=== PATIENT | female | born 1955 | race Caucasian/White ===

== ENCOUNTER 2017-07-14 20:23 | Emergency (ER) | payer BC ==
[~2017-07-14 20:23] MED LIST: ISOVUE-370 76%-LOCM 1 ML ONE
[2017-07-14 21:27] LABS: #Basophils 0.1 thou/uL (0.0-0.2); #Eosinphils 0.4 thou/uL (0.0-0.7); #Monocytes 0.9 thou/uL (0.11-0.59); #Neutrophils 7.6 thou/uL (1.40-6.50); %Basophils 0.6 % (0.0-1.0); %Eosinophils 3.8 % (0.0-10.0); %Lymphocytes 18.5 % (21.0-51.0); %Monocytes 7.9 % (0.0-10.0); Hematocrit 40.5 % (36.0-47.0); Mean Platelet Volume 6.6 fL (7.4-10.4); Red Blood Cell (RBC) Count 4.33 mill/uL (4.20-5.40); White Blood Cell (WBC) Count 10.9 thou/uL (4.8-10.8)
[2017-07-14 21:38] LABS: Lactic Acid - Sepsis 1.6 mmol/L (0.5-2.2)
[2017-07-14 21:42] LABS: ALT (SGPT) 14 U/L (8-55); AST (SGOT) 17 U/L (5-34); Alkaline Phosphatase 67 U/L (40-150); Anion Gap 13 mmol/L (10-20); BUN (Urea Nitrogen) 9 mg/dL (9.8-20.1); Bilirubin, Total 0.3 mg/dL (0.2-1.2); Calc. Creatinine Clearance 0 mL/min (70-130); Carbon Dioxide 26 mmol/L (23-31); Chloride 102 mmol/L (98-107); Estimated GFR-MDRD 71; Protein, Total 6.5 g/dL (6.0-8.3)
--- NOTE | 2017-07-14 23:39 | CT ---
CTA OF THE THORAX UTILIZING IV CONTRAST AND PE PROTOCOL AND 3D REFORMATTED IMAGING 07/14/17 INDICATION: 62-year-old female with cough and shortness of breath. Concern for PE. COMPARISON: Prior exam dated 07/24/13. FINDINGS: No central or segmental pulmonary embolus is evident. There is some subsegmental atelectasis within both lower lobes. No air space consolidation, pleural effusion or pneumothorax is evident. There are mild mitral annular calcifications. There are mild vascular calcifications involving the t horacic aorta and coronary arteries. No pathologically enlarged lymph nodes are evident. The visualized upper abdomen demonstrates postsurgical change of prior cholecystectomy. There is ACDF involving the lower cervical spine. There are scattered degenerative and osteoarthriti c change. IMPRESSION: 1. No central or segmental pulmonary embolus demonstrated. 2. Mild subsegmental atelectasis involving both lower lobes. No air space consolidation or pleu ral effusion is evident. POS: [facility]
== END 2017-07-14 23:18 | disposition home or self-care (01) ==
LOC: ERS 20:23
DX: R05 Cough (principal); F41.9 Anxiety disorder, unspecified; F32.9 Major depressive disorder, single episode, unspecified; Z87.891 Personal history of nicotine dependence; Z79.899 Other long term (current) drug therapy
CPT/HCPCS: 36415; 71275; 80053; 83605; 85025; 87040; 96360

== ENCOUNTER 2020-06-11 12:38 | Outpatient (CLI) | payer MEDICARE ==
--- NOTE | 2020-06-11 14:26 | MRI ---
MRI LEFT SHOULDER WITHOUT CONTRAST: 06/11/20 HISTORY: Traumatic tear left rotator cuff. COMPARISON: None. FINDINGS: BICEPS TENDON: Mild increased extra-articular biceps tendon with synovial fluid. Mild intra-articular tendinosis. No tear. LABRUM: The superior labrum is torn anterior/posterior to the biceps labral expansion. Intrasubstance tear. T here is also a chondrolabral junction tear in the posterior labrum. ROTATOR CUFF: Moderate tendinosis and interstitial tearing of the superior fibers subscapularis. High grade 60 to 7 0% partial articular surface supraspinatus tendon tear from the footprint with fibers retracted mid h umeral head. Extensive delamination of fluid into the footprint of the greater tuberosity given subco rtical cyst. Moderate tendinosis of the infraspinatus. No definite full thickness perforation is appr eciated. MUSCLES: The muscle signal and bulk is normal. No atrophy. BONES: Normal glenoid version. Mild degenerative disease of the acromioclavicular joint. Type III acromion w ith subacromial keel osteophyte and thickened coracoacromial ligament. SOFT TISSUES: Small joint effusion. Normal appearance of the axillary pouch. Moderate subacromial subdeltoid bursa effusion, reactive in nature. IMPRESSION: 1. High grade 60-70% partial articular surface supraspinatus tendon avulsion at the footprint re tracted to the mid humeral head. Chronic accentuation of interstitial delamination fluid into the sup raspinatus and greater tuberosity footprint. Subcortical cyst which can be seen on the prior radiogra phs. 2. Superior labral tear anterior/posterior to the biceps labral expansion. 3. Posterior chondrolabral junction tear. 4. Moderate reactive subacromial subdeltoid bursal effusion from impingement from the type III a cromion. POS: [facility]
== END 2020-06-11 12:39 | disposition home or self-care (01) ==
LOC: BICMRI 12:38
PROVIDERS: ATTEND Orthopaedic Surgery
DX: S46.012A Strain of muscle(s) and tendon(s) of the rotator cuff of left shoulder, initial encounter (principal); S46.892A Other injury of other muscles, fascia and tendons at shoulder and upper arm level, left arm, initial encounter; S43.492A Other sprain of left shoulder joint, initial encounter; M75.42 Impingement syndrome of left shoulder

== ENCOUNTER 2020-08-13 07:36 | Outpatient (CLI) | payer MEDICARE, OTHER ==
[2020-08-13 11:30] LABS: #Basophils 0.1 thou/uL (0.0-0.2); #Eosinphils 0.3 thou/uL (0.0-0.7); #Lymphocytes 2.2 thou/uL (1.20-3.40); #Monocytes 0.7 thou/uL (0.11-0.59); #Neutrophils 4.3 thou/uL (1.40-6.50); %Basophils 0.9 % (0.0-1.0); %Eosinophils 3.7 % (0.0-10.0); %Monocytes 9.3 % (0.0-10.0); Hemoglobin 14.3 g/dL (12.0-16.0); Mean Corpuscular Hemoglobin 30.7 pg (27.0-31.0); Mean Platelet Volume 8.2 fL (7.4-10.4); Platelet Count 219 thou/uL (130-400); Red Blood Cell (RBC) Count 4.64 mill/uL (4.20-5.40); White Blood Cell (WBC) Count 7.5 thou/uL (4.8-10.8)
[2020-08-13 12:01] LABS: Anion Gap 14 mmol/L (10-20); BUN (Urea Nitrogen) 14 mg/dL (9.8-20.1); Calc. Creatinine Clearance 0 mL/min (70-130); Calcium 9.2 mg/dL (7.8-10.44); Carbon Dioxide 27 mmol/L (23-31); Chloride 104 mmol/L (98-107); Estimated GFR-MDRD 77; Glucose 105 mg/dL (80-115); Potassium 4.3 mmol/L (3.5-5.1); Sodium 141 mmol/L (136-145)
[2020-08-13 12:41] LABS: Prothrombin Time 13.8 sec (12.0-14.7)
[2020-08-13 17:05] LABS: SARS-CoV-2 MS2 Positive; SARS-CoV-2 N Gene Negative; SARS-CoV-2 S Gene Negative; SARS-CoV-2 by NAA Not Detected (NotDetected); SARS-CoV-2 orf1ab Negative
--- NOTE | 2020-08-16 12:00 | EKG ---
Test Reason : Blood Pressure : / mmHG Vent. Rate : 075 BPM Atrial Rate : 075 BPM P-R Int : 192 ms QRS Dur : 110 ms QT Int : 400 ms P-R-T Axes : 052 -29 020 degrees QTc Int : 446 ms Sinus rhythm with Premature atrial complexes Minimal voltage criteria for LVH, may be normal variant Septal infarct , age undetermined Abnormal ECG No previous ECGs available Confirmed by SCHUYLER CHACON (2) on 08/16/2020 11:59:47 AM Referred By: JOURDAN Confirmed By:SCHUYLER CHACON
== END 2020-08-13 07:37 | disposition home or self-care (01) ==
LOC: LABBT 07:36
PROVIDERS: ATTEND Orthopaedic Surgery
DX: Z01.818 Encounter for other preprocedural examination (principal); Z20.828 Contact with and (suspected) exposure to other viral communicable diseases; S46.812A Strain of other muscles, fascia and tendons at shoulder and upper arm level, left arm, initial encounter; S43.432A Superior glenoid labrum lesion of left shoulder, initial encounter
CPT/HCPCS: 80048; 85025; 85610; 93005; U0003; 87635; 93010

== ENCOUNTER 2020-08-18 05:44 | Day surgery (SDC) | payer MEDICARE ==
[2020-08-17 10:35] VITALS: BMI 26.4
[2020-08-18] MEDS ORDERED: Bupivacaine/Epinephrine 0.25% 30 ML VIAL ONE (06:21)
[2020-08-18] MEDS ORDERED: Fentanyl 100 MCG/2 ML VIAL ONE ×2 (06:31→06:57)
[2020-08-18] MEDS ORDERED: Midazolam HCl 2 mg/2 ml Vial ONE (06:31)
[2020-08-18] MEDS ORDERED: Lidocaine 1% (PF) 30 ML VIAL ONE (06:31)
[2020-08-18] MEDS ORDERED: Scopolamine 1.5 mg/72 hour Patch ONE (06:40)
[2020-08-18] MEDS ORDERED: Propofol 1,000 MG/100 ML VIAL IV ONE (06:57)
[2020-08-18] MEDS ORDERED: Promethazine HCl 25 MG/ML VIAL ONE ×2 (06:57→09:14)
[2020-08-18] MEDS ORDERED: HYDROcodone/Acetaminophen 5/325 mg Tablet PO PRN ×2 (07:30)
[2020-08-18] MEDS ORDERED: Zolpidem Tartrate 5 MG TAB PO PRN (07:30)
[2020-08-18] MEDS ORDERED: Ropivacaine 0.2% 550 ML 550 ML NERVE BLCK SCH (07:30)
[2020-08-18] MEDS ORDERED: traMADol HCl 50 MG TAB PO PRN ×2 (07:30)
[2020-08-18] MEDS ORDERED: Promethazine HCl 25 MG/ML VIAL IM PRN (07:30)
[2020-08-18] MEDS ORDERED: Ondansetron PF 4 MG/2 ML Vial IVP PRN (07:30)
[2020-08-18] MEDS ORDERED: Propofol 500 MG/50 ML VIAL ONE (08:23)
[2020-08-18] MEDS ORDERED: SUGAMMADEX SODIUM 200 MG/2 ML VIAL ONE (08:30)
[2020-08-18] MEDS ORDERED: Labetalol HCl 100 MG/20 ML VIAL ONE (10:02)
[2020-08-18] MEDS ORDERED: Dexamethasone 20 MG/5 ML VIAL ONE (11:39)
[2020-08-18] MEDS ORDERED: Ropivacaine 0.2% HCl/PF (40 MG/20 ML VIAL) ONE (11:39)
[2020-08-18] MEDS ORDERED: PHENYLEPHRINE-NS 100 MCG/ML 10 ML SYRINGE ONE (11:39)
[2020-08-18] MEDS ORDERED: Ondansetron PF 4 MG/2 ML Vial ONE (11:39)
[2020-08-18] MEDS ORDERED: Rocuronium Bromide 10 MG/ML (10ML VIAL) ONE (11:39)
[2020-08-18] MEDS ORDERED: Lidocaine 1% PF 5 ML VIAL ONE (11:39)
[2020-08-18] MEDS ORDERED: PROPOFOL 200 MG/20 ML VIAL ONE (11:39)
[2020-08-18] MEDS ORDERED: Ropivacaine 0.5% HCl/PF (150 MG/30 ML VIAL) ONE (11:39)
[2020-08-18] MEDS ORDERED: Ketorolac Tromethamine 30 MG/ML VIAL IVP SCH (12:00)
[2020-08-18] MEDS ORDERED: HYDROcodone/Acetaminophen 5/325 mg Tablet ONE ×2 (12:00→12:02)
--- NOTE | 2020-08-19 13:42 | OP ---
DATE OF PROCEDURE: 08/18/2020 PREOPERATIVE DIAGNOSIS: Left rotator cuff 60% to 70% tear, high-grade, partial. POSTOPERATIVE DIAGNOSIS: High-grade partial left rotator cuff tear, supraspinatus footprint. PROCEDURE PERFORMED: Left arthroscopic rotator cuff repair. TUMBLERS SUPERVISOR: None. ANESTHESIA: Dr Vega the patient received a general endotracheal intubation and interscalene block. ESTIMATED BLOOD LOSS: 30 mL. TOURNIQUET TIME: None. ANTIBIOTICS: Ancef 2 g. IMPLANTS: 5.5 corkscrew, 4.75 SwiveLock.arthrex COMPLICATIONS: None. HISTORY OF PRESENT ILLNESS: Ms. Chamorro is a 65-year-old female, who presented with left shoulder pain, MRI evidence of a high-grade articular supraspinatus tear with some retraction. The patient had some labral changes, type III acromion. I discussed with the family risks and benefits of a left arthroscopic rotator cuff repair with possible biceps tenodesis and decompression. I discussed the risks and benefits to include pain, scar, bleeding, infection, damage to vital structures, decreased range of motion and strength, continued pain despite surgical intervention, failure of procedure, loss of life or limb. The patient and family understood the risks and benefits of the procedure, elected to proceed. DESCRIPTION OF PROCEDURE: Time-out was performed designating the patient's left upper extremity as the operative site based on site, consents, and marking. After time-out, the patient's left upper extremity was prepped and draped in sterile fashion. She was placed in beach chair position with all bony prominence well padded. In a posterior working portal, I had injected Marcaine preprocedure subacromially with about 15 mL of 0.25% with epi. Looked intra-articularly within the joint and visualized the patient's glenohumeral joint joint, there was some synovitis and inflamed synovium throughout the joint intraarticular partial tear, but no full-thickness tear noted. The biceps looked good through its course. No significant inflammation. There were some degenerative labral changes. I cleaned up some of the hanging synovium found under internal surface portion of the capsular tear, which I debrided and completed my intra-articular scope and moved subacromially. I debrided off the bursa to expose the rotator cuff, I felt along and felt a soft spot within the supraspinatus, which fell into the 60% tear. I created a footprint and landing pad for my anchor and placed 5.5 corkscrew. I used my anterior and lateral working portal that had been established to pass sutures through the cuff in for 2 horizontal mattress stictches placed lateral 4.75 SwiveLock in the bone and compressed the bone down into place. I pulled on all anchors and ensured that they were within bone, stable. I cut the final sutures, removed any remaining sutures. I took final pictures, washed and closed with 3-0 nylon. The patient will be discharged home with pain medications. I contacted Dr Lehman office to ensure that they knew that I will be sending her home with pain medications. Job ID: [id number] [facility]ENTERHeraclio
== END 2020-08-18 13:28 | disposition home or self-care (01) ==
LOC: SDC 05:44
PROVIDERS: ATTEND Orthopaedic Surgery
PROC: 0LQ24ZZ Repair Left Shoulder Tendon, Percutaneous Endoscopic Approach (ICD-10-PCS; principal; 2020-08-18)
PROC: 3E0T3BZ Introduction of Anesthetic Agent into Peripheral Nerves and Plexi, Percutaneous Approach (ICD-10-PCS; 2020-08-18)
DX: S46.012A Strain of muscle(s) and tendon(s) of the rotator cuff of left shoulder, initial encounter (principal); S43.432A Superior glenoid labrum lesion of left shoulder, initial encounter; M75.41 Impingement syndrome of right shoulder; G89.18 Other acute postprocedural pain; G43.909 Migraine, unspecified, not intractable, without status migrainosus; F32.9 Major depressive disorder, single episode, unspecified; F41.9 Anxiety disorder, unspecified; K21.9 Gastro-esophageal reflux disease without esophagitis; G25.81 Restless legs syndrome; M47.816 Spondylosis without myelopathy or radiculopathy, lumbar region; M06.9 Rheumatoid arthritis, unspecified; F90.9 Attention-deficit hyperactivity disorder, unspecified type; Z87.891 Personal history of nicotine dependence; Z79.899 Other long term (current) drug therapy; Z88.1 Allergy status to other antibiotic agents; Z98.1 Arthrodesis status; X58.XXXA Exposure to other specified factors, initial encounter
CPT/HCPCS: 29827; 64416; A4306; C1713 ×2; J0690; J1100; J2001; J2250; J2405; J2550; J2704; J2795; J3010; J7620

== ENCOUNTER 2021-03-11 14:57 | Outpatient (CLI) | payer MEDICARE ==
[2021-03-11 16:20] LABS: #Eosinphils 0.2 10x3/uL (0.0-0.5); #Monocytes 0.5 10x3/uL (0.0-1.1); #Neutrophils 4.7 10x3/uL (1.5-8.4); %Basophils 0.4 % (0.0-2.0); %Eosinophils 2.7 % (0.0-6.0); %Lymphocytes 22.3 % (18.0-47.0); %Monocytes 7.3 % (0.0-10.0); %Neutrophils 66.9 % (40.0-75.0); Hemoglobin 13.3 g/dL (12.0-15.5); Mean Corpuscular Volume 96.6 fl (81.6-98.3); Mean Platelet Volume 10.7 fl (7.4-10.4); Platelet Count 216 10x3/uL (150-450); RBC Distribution Width 13.2 % (11.5-14.5); Red Blood Cell (RBC) Count 4.44 10x6/uL (3.90-5.03)
[2021-03-11 16:35] LABS: Anion Gap 14 mmol/L (10-20); BUN (Urea Nitrogen) 13 mg/dL (9.8-20.1); Calc. Creatinine Clearance 0 mL/min (70-130); Calcium 8.9 mg/dL (7.8-10.44); Carbon Dioxide 28 mmol/L (23-31); Chloride 103 mmol/L (98-107); Glucose 123 mg/dL (80-115); Potassium 3.6 mmol/L (3.5-5.1); Sodium 141 mmol/L (136-145)
[2021-03-11 17:36] LABS: Bilirubin Neg (Negative); Blood, Urine 10 (Negative); Clarity Clear (Clear); Glucose, Urine (Dipstick) Normal (Negative); Ketone, Urine Negative (Negative); Leukocyte Negative (Negative); Nitrite Negative (Negative); Protein, Urine (Dipstick) 15 mg/dl (Neg-Trace)
[2021-03-11 17:49] LABS: Bacteria/HPF 2+ HPF (None Seen); Calcium Oxalate Crystals Rare HPF (None Seen); RBC/HPF 0-3 HPF (0-3); Squamous Epithelial 0-3 HPF (0-3)
[2021-03-12 01:36] LABS: SARS-CoV-2 PCR by NAA Not Detected (NotDetected)
== END 2021-03-11 14:58 | disposition home or self-care (01) ==
LOC: LABBT 14:57
PROVIDERS: ATTEND Orthopaedic Surgery Hand Surgery
DX: Z01.812 Encounter for preprocedural laboratory examination (principal); Z20.822 Contact with and (suspected) exposure to COVID-19; M18.11 Unilateral primary osteoarthritis of first carpometacarpal joint, right hand; M35.1 Other overlap syndromes
CPT/HCPCS: 80048; 81001; 85025; 93005; U0003; U0005; 87635; 93010

== ENCOUNTER 2021-03-16 06:10 | Day surgery (SDC) | payer MEDICARE ==
[2021-03-12 13:53] VITALS: BMI 40.8
[2021-03-16] MEDS ORDERED: Fentanyl 100 MCG/2 ML VIAL ONE ×2 (06:21→07:04)
[2021-03-16] MEDS ORDERED: Midazolam HCl 2 mg/2 ml Vial ONE (06:21)
[2021-03-16] MEDS ORDERED: Bupivacaine 0.25% HCL 30 ML VIAL ONE (06:21)
[2021-03-16] MEDS ORDERED: Betamet Acet/Betamet Na Ph 30 MG/5 ML VIAL ONE (06:21)
[2021-03-16] MEDS ORDERED: Bacitracin Zinc Ointment 30 gm TUBE ONE (06:21)
[2021-03-16] MEDS ORDERED: EPINEPHrine 1 MG/ML AMP ONE (06:27)
[2021-03-16] MEDS ORDERED: Lidocaine 1% (PF) 30 ML VIAL ONE (06:27)
[2021-03-16] MEDS ORDERED: Bupivacaine PF 0.5% 30 ML VIAL ONE (06:40)
[2021-03-16] MEDS ORDERED: Propofol 1,000 MG/100 ML VIAL IV ONE (07:04)
[2021-03-16] MEDS ORDERED: Scopolamine 1.5 mg/72 hour Patch ONE (07:14)
[2021-03-16] MEDS ORDERED: Bupivacaine HCl 0.5%/Epinephrine 1:200,000/PF 30 ml Vial ONE (07:22)
[2021-03-16] MEDS ORDERED: Ketorolac Tromethamine 30 MG/ML VIAL ONE (11:51)
== END 2021-03-16 12:47 | disposition home or self-care (01) ==
LOC: SDC 06:10
PROVIDERS: ATTEND Orthopaedic Surgery Hand Surgery
PROC: 0RGW04Z Fusion of Right Finger Phalangeal Joint with Internal Fixation Device, Open Approach (ICD-10-PCS; principal; 2021-03-16)
PROC: 0LX70ZZ Transfer Right Hand Tendon, Open Approach (ICD-10-PCS; 2021-03-16)
PROC: 0RUS07Z Supplement Right Carpometacarpal Joint with Autologous Tissue Substitute, Open Approach (ICD-10-PCS; 2021-03-16)
PROC: 3E0T3BZ Introduction of Anesthetic Agent into Peripheral Nerves and Plexi, Percutaneous Approach (ICD-10-PCS; 2021-03-16)
DX: M18.11 Unilateral primary osteoarthritis of first carpometacarpal joint, right hand (principal); M19.041 Primary osteoarthritis, right hand; G89.18 Other acute postprocedural pain; G43.909 Migraine, unspecified, not intractable, without status migrainosus; K21.9 Gastro-esophageal reflux disease without esophagitis; G25.81 Restless legs syndrome; M47.26 Other spondylosis with radiculopathy, lumbar region; M06.9 Rheumatoid arthritis, unspecified; Z87.891 Personal history of nicotine dependence; Z79.899 Other long term (current) drug therapy; Z88.1 Allergy status to other antibiotic agents; Z98.1 Arthrodesis status
CPT/HCPCS: 76000; J0171; J0690; J0702; J1885; J2001; J2250; J2704; J3010; J3490; S0020

== ENCOUNTER 2021-04-13 12:54 | Day surgery (SDC) | payer MEDICARE ==
[2021-04-12 12:15] VITALS: BMI 40.8
[2021-04-13] MEDS ORDERED: Bacitracin Zinc Ointment 30 gm TUBE ONE (13:31)
[2021-04-13] MEDS ORDERED: Bupivacaine PF 0.5% 30 ML VIAL ONE (13:31)
[2021-04-13] MEDS ORDERED: Sodium Chloride 0.9% 10 ML ONE (13:31)
[2021-04-13] MEDS ORDERED: Scopolamine 1.5 mg/72 hour Patch ONE (13:38)
[2021-04-13] MEDS ORDERED: Midazolam HCl 2 mg/2 ml Vial ONE ×2 (13:38→13:47)
[2021-04-13] MEDS ORDERED: Ketamine 50 MG/ML (10ML VIAL) ONE (13:47)
[2021-04-13] MEDS ORDERED: Propofol 500 MG/50 ML VIAL ONE (13:47)
[2021-04-13] MEDS ORDERED: Fentanyl 100 MCG/2 ML VIAL ONE (13:47)
[2021-04-13] MEDS ORDERED: Ketorolac Tromethamine 30 MG/ML VIAL ONE (15:36)
[2021-04-13] MEDS ORDERED: HYDROcodone/Acetaminophen 5/325 mg Tablet ONE (15:36)
== END 2021-04-13 16:35 | disposition home or self-care (01) ==
LOC: SDC 12:54
PROVIDERS: ATTEND Orthopaedic Surgery Hand Surgery
PROC: 0RP Upper Joints, Removal (ICD-10-PCS; principal; 2021-04-13)
DX: T84.84XA Pain due to internal orthopedic prosthetic devices, implants and grafts, initial encounter (principal); Z79.899 Other long term (current) drug therapy; Z87.891 Personal history of nicotine dependence; Z88.1 Allergy status to other antibiotic agents
CPT/HCPCS: 76000; J0690; J1885; J2250; J2704; J3010; J3490; S0020

== ENCOUNTER 2021-10-01 19:38 | Observation (INO) | payer MEDICARE ==
[2021-10-01] MEDS ORDERED: Ketamine 50 MG/ML (10ML VIAL) ONE ×2 (20:35→21:13)
[2021-10-01] MEDS ORDERED: PROPOFOL 0 ML ONE (20:35)
[2021-10-01] MEDS ORDERED: PROPOFOL 20 ML ONE (20:36)
[2021-10-01] MEDS ORDERED: Fentanyl 250 MCG/5 ML VIAL ONE (21:13)
[2021-10-01] MEDS ORDERED: Propofol 500 MG/50 ML VIAL ONE (21:15)
[2021-10-01] MEDS ORDERED: Propofol 1,000 MG/100 ML VIAL IV ONE (21:15)
[2021-10-01] MEDS ORDERED: SUGAMMADEX SODIUM 200 MG/2 ML VIAL ONE (21:32)
[2021-10-01] MEDS ORDERED: Lorazepam 2 MG/ML VIAL ONE (21:33)
[2021-10-01] MEDS ORDERED: Midazolam HCl 2 mg/2 ml Vial ONE (21:49)
[2021-10-01] MEDS ORDERED: Glycopyrrolate 0.2 MG/ML 5 ML SYRINGE ONE (22:01)
[2021-10-01] MEDS ORDERED: Rocuronium Bromide 10 MG/ML (10ML VIAL) ONE (22:01)
[2021-10-01] MEDS ORDERED: PROPOFOL 200 MG/20 ML VIAL ONE (22:01)
[2021-10-01] MEDS ORDERED: Ondansetron PF 4 MG/2 ML Vial ONE (22:01)
[2021-10-01] MEDS ORDERED: Dexamethasone 20 MG/5 ML VIAL ONE (22:01)
[2021-10-01] MEDS ORDERED: Lidocaine 1% PF 5 ML VIAL ONE (22:01)
[2021-10-01] MEDS ORDERED: Metoclopramide HCl 10 MG/2 ML VIAL ONE (22:01)
[2021-10-01 22:13] LABS: SARS-CoV-2 NAA Rapid Test Not Detected (NotDetected)
[2021-10-01] MEDS ORDERED: Bacitracin Zinc Ointment 30 gm TUBE ONE ×2 (22:30→22:31)
[2021-10-01] MEDS ORDERED: Fentanyl 100 MCG/2 ML VIAL ONE (23:19)
[2021-10-01] MEDS ORDERED: Ketorolac Tromethamine 30 MG/ML VIAL ONE (23:20)
[2021-10-02] MEDS ORDERED: HYDROcodone/Acetaminophen 5/325 mg Tablet PO PRN (00:33)
[2021-10-02] MEDS ORDERED: Acetaminophen 325 MG TAB PO PRN (00:33)
[2021-10-02] MEDS ORDERED: traMADol HCl 50 MG TAB PO PRN ×2 (00:33)
[2021-10-02] MEDS ORDERED: Ondansetron PF 4 MG/2 ML Vial SLOW IVP PRN (00:33)
[2021-10-02] MEDS ORDERED: Ketorolac Tromethamine 30 MG/ML VIAL ONE (00:54)
[2021-10-02] MEDS: Ketorolac Tromethamine 30 MG/ML VIAL IVP SCH ×3 (00:57→13:14)
[2021-10-02] MEDS ORDERED: tiZANidine HCl 4 MG TAB PO SCH (01:00)
[2021-10-02] MEDS ORDERED: rOPINIRole HCl 2 MG TAB PO SCH (01:00)
[2021-10-02 01:56] VITALS: BMI 43.4
[2021-10-02] MEDS ORDERED: Aspirin 81 mg Enteric Coated Tablet PO SCH (09:00)
[2021-10-02 12:10] VITALS: TEMP 97.9
[2021-10-02 15:34] VITALS: BP 155/77
== END 2021-10-02 13:40 | disposition home or self-care (01) ==
LOC: ERS 19:38 → SDC/OP 21:58 → SJJU 22:46
PROVIDERS: ADMIT Orthopaedic Surgery; ATTEND Orthopaedic Surgery
PROC: 0SWBXJZ Revision of Synthetic Substitute in Left Hip Joint, External Approach (ICD-10-PCS; principal; 2021-10-01)
DX: T84.021A Dislocation of internal left hip prosthesis, initial encounter (principal); G43.909 Migraine, unspecified, not intractable, without status migrainosus; I50.9 Heart failure, unspecified; E78.5 Hyperlipidemia, unspecified; K21.9 Gastro-esophageal reflux disease without esophagitis; G25.81 Restless legs syndrome; M06.9 Rheumatoid arthritis, unspecified; M47.26 Other spondylosis with radiculopathy, lumbar region; Z87.891 Personal history of nicotine dependence; Z79.899 Other long term (current) drug therapy; Z88.1 Allergy status to other antibiotic agents; Z88.8 Allergy status to other drugs, medicaments and biological substances; Z98.1 Arthrodesis status; Z20.822 Contact with and (suspected) exposure to COVID-19; X58.XXXA Exposure to other specified factors, initial encounter; Y79.2 Prosthetic and other implants, materials and accessory orthopedic devices associated with adverse incidents
CPT/HCPCS: 27266; 73502; 73503; 96375; 97116; 97139 ×2; 97530; G0378; U0002; 96374; J1100; J1885; J2060; J2250; J2405; J2704; J2765; J3010